=== PATIENT | male | born 1960 | race Caucasian/White ===

== ENCOUNTER 2017-01-30 06:10 | Inpatient (IN) ==
[2017-01-30] MEDS ORDERED: CeFAZolin Pre 2,000 MG/100 ML 2,000 MG/100 ML BAG IVPB ONE (06:21)
[2017-01-30] MEDS ORDERED: Albuterol 2.5 MG/3 ML NEBULIZER IH ONE (06:28)
[2017-01-30] MEDS ORDERED: Ringers Solution, Lactated 1,000 ML IVC SCH ×2 (06:30→11:58)
[2017-01-30] MEDS ORDERED: Albuterol 2.5 MG/3 ML NEBULIZER ONE (06:49)
[2017-01-30] MEDS ORDERED: Lidocaine 1% 20 ML MDV ID ONE (07:05)
[2017-01-30] MEDS ORDERED: *HR* Labetalol 100 MG/20 ML MDV IVP PRN (07:25)
[2017-01-30] MEDS ORDERED: *HR* Promethazine 25 MG/ML VIAL IVP PRN (07:25)
[2017-01-30] MEDS ORDERED: Famotidine 20 MG/2 ML VIAL IVP ONE (07:25)
[2017-01-30] MEDS ORDERED: cloNIDine HCl 0.1 MG TABLET PO ONE (07:27)
[2017-01-30] MEDS ORDERED: Gabapentin 300 MG CAPSULE PO STA (07:27)
--- NOTE | 2017-01-30 07:31 | Anesthesia Evaluation PreOp ---
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 Chronic pain maintained on Amitryptiline, Cyclobenzaprine for muscle spasms. L>>R weakness, N/T, pain. BLE achiness) Other Medical History: Denies Any Significant HX Anesthesia History: No Prior Anesthetic Complications, Past Anesthesia (Franky, L- RCR 2000, T&A) Alcohol Use: occasionally Drug use: none Medications and Allergies Losartan/Hydrochlorothiazide [Losartan-Hctz 100-25 mg Tab] 1 each PO DAILY 06/23 [History] Omeprazole [PriLOSEC] 20 mg PO DAILY 06/23/15 [History] Pravastatin Sodium [Pravachol] 80 mg PO DAILY 06/23/15 [History] Ibuprofen [Motrin] 800 mg PO Q8HR #20 tablet 02/11/16 [Rx] Acetaminophen w/Cod 300-30 mg [Tylenol w/Codeine #3] 1 - 2 each PO Q6HR PRN #12 tablet 08/01/16 [Rx] Allergies No Known Allergies Allergy (Verified 01/30/17 07:45) - Meds/Allergy Pre-op Review Medications Reviewed: Yes Allergies Reviewed: Yes Beta Blockers on Current Med List: No Anesthesia Results - Labs Laboratory Tests 05/27/15 01/09/17 01/09/17 15:13 16:05 16:05 WBC 7.0 Hgb 15.2 Hct 44.3 Plt Count 301 PT 10.9 INR 1.0 APTT 31.5 Sodium Potassium Chloride Carbon Dioxide BUN Creatinine Est GFR (Non-Af Amer) Glucose 89 01/09/17 16:05 WBC Hgb Hct Plt Count PT INR APTT Sodium 139 Potassium 3.8 Chloride 107 Carbon Dioxide 23 BUN 14 Creatinine 1.03 Est GFR (Non-Af Amer) > 60 Glucose - Imaging EKG: image reviewed (77bpm SR, moderate intraventrricular conduction delay) Anesthesia Exam O2 Sat Height 1.68 m Height 1.68 m Height 1.68 m Weight 85.275 kg Weight 85.275 kg Weight 85.275 kg O2 Sat by Pulse Oximetry 95 O2 Sat by Pulse Oximetry 95 Vital Signs Temp Pulse Resp BP Pulse Ox 97.5 F L 60 16 125/90 95 01/30/17 06:42 01/30/17 06:42 01/30/17 06:42 01/30/17 06:42 01/30/17 06:42 Height: 5'7" Weight: 187# - HEENT Pupil (Motor): Pupils equal, EOMI Mallampati: III Teeth: Missing, Poor dentition Oral Opening: Greater than 3 - STAFF SERVICES MANAGER LOC: Oriented STAFF SERVICES MANAGER Motor: Deficit RUE, Deficit LUE (L>RUE N/T, weakness), Deficit LLE STAFF SERVICES MANAGER Sensory: Deficit: RUE, LUE - Cardiac Rhythm: Regular Murmur: None - Pulmonary Breath Sounds: bilateral Clear Respiratory Effort: Symmetrical Anesthesia Assess/Plan ASA Score: 3 (HTN, Smoker, DANIEL, Chol) Modified [place] Scale for Level of Consciousness: Cooperative, oriented, and tranquil Anesthetic Plan: General Monitoring Plan: Standard Monitors Recovery Plan: PACU Anes Supervising Prov Stmt: Pt seen/evaluated, R&B discussed, questions answered and consent obtained. Ted Dey MD
--- NOTE | 2017-01-30 08:08 | History & Physical Report ---
Date of Encounter: 01/30/17 Time of Encounter: 08:07 24 Hour HP Update - Instructions Instructions: If the History and Physical is less than 30 days old and was completed prior to A.M. admission and or procedure and has NOT been updated on calendar day of procedure please complete this update prior to performing procedure. - Update Patient reports changes in Medical Condition: No Changes in assessment/condition: No Changes in Medication: No Preop tests/diagnostics Reviewed: Yes Pre-Op MRSA Screen: Negative Surgery Remains Indicated: Yes Consent for Planned Operative Procedure(s) Verified: Yes - Pre-Operative Checklist Preoperative Checklist Indicated: No Prophylactic Antibiotic Ordered: Yes Home Medications Include Beta Shasha: No Beta Shasha Taken Today (Day of Surgery): No Beta Shasha Taken Yesterday (Day Prior to Surgery): No Is VTE Prophylaxis Indicated?: Yes
[2017-01-30] MEDS ORDERED: Dexamethasone 4 MG/ML VIAL ONE (09:05)
[2017-01-30] MEDS ORDERED: *HR* FentaNYL (PF) 100 MCG/2 ML VIAL ONE ×2 (09:05)
[2017-01-30] MEDS ORDERED: *HR* Propofol 200 MG/20 ML VIAL IVP ONE (09:05)
[2017-01-30] MEDS ORDERED: *HR* Rocuronium Bromide 50 MG/5 ML VIAL ONE (09:05)
[2017-01-30] MEDS ORDERED: Ondansetron 4 MG/2 ML VIAL ONE (09:05)
[2017-01-30] MEDS ORDERED: Lidocaine -MPF 2% 2 ML VIAL ONE (09:05)
[2017-01-30] MEDS ORDERED: *HR* Midazolam HCl 2 MG/2 ML VIAL ONE (09:05)
[2017-01-30] MEDS ORDERED: *HR* Succinylcholine 200 MG/10 ML VIAL IVP ONE (09:05)
[2017-01-30] MEDS ORDERED: Lidocaine -MPF 4% 5 ML AMPUL ONE (09:05)
[2017-01-30] MEDS ORDERED: *HR* Remifentanil 1 MG VIAL IVP ONE ×2 (09:05)
[2017-01-30] MEDS ORDERED: Lacri-Lube 3.5 GM TUBE ONE (09:05)
[2017-01-30] MEDS ORDERED: *HR* Phenylephrine 10 MG/ML VIAL ONE (09:05)
[2017-01-30] MEDS ORDERED: *HR* HYDROmorphone 2 MG/ML SYRINGE ONE (10:31)
--- NOTE | 2017-01-30 10:39 | Orthopedic Operative Note ---
Date of procedure: 01/30/17 Pre-op diagnosis: Cervical stenosis, cervical radiculopathy Post-op diagnosis: same Operation/Findings: Anterior cervical decompression and fusion C6-7: The patient was brought to the operating room and placed supine on the operating room table. Successful general endotracheal anesthesia intubation was performed. Neurophysiologic monitoring personnel placed leads on the upper and lower extremities as well as the cranium for EMG monitoring purposes. Appropriate baseline potentials were noted by the neurophysiologic monitoring staff. Prince catheter was placed prior to positioning. Compression boots and stockings were placed for deep vein thrombosis prophylaxis. Padding was also placed all bony prominences including the ulnar nerve near the medial epicondyles of the elbows were appropriately padded. Mild traction was placed on the bilateral shoulders and taped into place. Preoperative antibiotics were administered. The area from the mandible bilaterally to the upper thoraces was prepped and draped in the usual sterile fashion. A transverse incision was made at the level of the cricoid cartilage which is approximately 3 cm in length and extended from the midline of the cervical spine laterally towards the sternocleidomastoid muscle on the left. We then performed standard medial approach to the carotid sheath. Sponges were used to tease the fascial medial to the sternocleidomastoid muscle while carefully controlling and palpating the carotid artery. Using careful dissection we were able to get to the level of the anterior vertebral bodies and longus coli muscles. The spinal needle was placed at the appropriate C6-7 level, and intraoperative radiograph was obtained which was a cervical spine lateral radiograph. The needle and radiograph confirmed we were at the correct C6-7 operative level. We further exposed this level by using Bovie cautery under the medial edge of the longus coli muscles to allow them to be retracted approximately 2 mm laterally on each side. An 11 blade was used to perform anterior discectomy at the appropriate C6-7 level after an initial annulotomy of the anterior longitudinal ligament and annulus was performed. Further disc material was removed with pituitary Rongeurs. Subsequently, Synthes pins were placed at the C6 and C7 vertebral bodies respectively to provide distraction. We then used a Trimline cervical retractor which was placed in both medial and lateral as well as inferior superior direction to allow full visualization of the appropriate C6-7 disc and C6 and C7 vertebral bodies. The Leica microscope was brought to the field and the remainder of the procedure was performed under the guidance of this microscope. Using pituitary rongeurs and small curettes, various micro- instruments, a full discectomy was performed at the appropriate C6-7 level. The posterior longitudinal ligament was encountered and appeared partially calcified. A portion of this ligament was removed. After complete and thorough discectomy and removal of spondylitic material was performed the endplates of the C6 and C7 vertebral bodies were prepared with a bur until allow bleeding of cancellous bone. A 7 mm trial graft was evaluated and appeared to fit quite well within the excised disc space. A cortico-cancellus allograft of 7 mm was utilized, carefully tapped into place within the excised disc space with the aid of a bone tamp. It was seated approximately 2 mm from the anterior edge of the cortex of the adjacent vertebral bodies. A cervical plate was then placed on the anterior aspect of the C6 and C7 vertebral bodies. The plate was placed in the midline position after drilling four 13 mm self tapping screws and inserting them. They were locked in place using standard Venture plate maneuvers. At this point a lateral radiograph of the cervical spine was obtained and showed satisfactory position of the graft and plate. The wound was copiously irrigated and bleeders encountered were cauterized using Bovie cautery. Platysma was closed with interrupted 2-0 Vicryl sutures. Running 3-0 Monocryl suture was used for skin closure. Sterile dressing was placed over the neck wound. The patient was transferred to a hospital bed and extubated. The patient was noted to be fully motor and sensory intact in the recovery room at the end of the procedure. The medications. All sponge instrument and needle counts were correct at the end of the procedure. Anesthesia: GETA Surgeon: Garth Quijano Jr Estimated blood loss (cc): 25 Condition: stable Disposition: PACU
[2017-01-30] MEDS ORDERED: Ketorolac 30 MG/ML VIAL IVP ONE (11:11)
[2017-01-30] MEDS ORDERED: *HR* HYDROmorphone (PF) 1 MG/ML SYRINGE ONE (11:14)
[2017-01-30] MEDS: *HR* HYDROmorphone (PF) 1 MG/ML SYRINGE IVP PRN ×2 (11:15→11:25)
[2017-01-30] MEDS: Dexamethasone 4 MG/ML VIAL IVP ONE ×2 (11:26→11:37)
--- NOTE | 2017-01-30 11:45 | Anesthesia Evaluation Post Op ---
Date of Encounter: 01/30/17 Time of Encounter: 11:44 - Vital Signs Vital Signs: Last Vital Signs Temp 96.9 F L 01/30/17 10:45 Pulse 97 01/30/17 10:45 Resp 16 01/30/17 11:15 BP 124/75 01/30/17 10:45 Pulse Ox 99 01/30/17 11:15 - Lungs Lungs: Clear Ascult./Percussion - Airway Airway: Non-obstructed - Cardiovascular Regular Rate - Mental Status Mental Status: Alert & Oriented, Answers Appropriately - Pain Pain Scale: 2 - Nausea Vomiting Nausea Vomiting: Not Present - Hydration Hydration: NPO - Discharge PostOp Status: Transfer Patient to floor
[2017-01-30] MEDS ORDERED: tiZANidine 4 MG TABLET PO PRN (11:58)
[2017-01-30] MEDS ORDERED: Naloxone 0.4 MG/ML INJ IVP PRN (11:58)
[2017-01-30] MEDS ORDERED: *HR* Morphine 2 MG/ML SYRINGE IVP PRN ×2 (11:58)
[2017-01-30] MEDS: ceFAZolin 2,000 MG in D5% in Water 100 ML IVPB SCH ×2 (15:55→23:52)
[2017-01-30] MEDS: *HR* OxyCODONE Immed Rel 5 MG TABLET PO PRN (18:19)
[2017-01-30] MEDS ORDERED: Fluticasone Propionate Nasal 50 MCG/SPRAY BOTTLE NS SCH (21:00)
[2017-01-31] MEDS: *HR* OxyCODONE Immed Rel 5 MG TABLET PO PRN ×2 (00:27→13:59)
[2017-01-31] MEDS ORDERED: *HR* HYDROmorphone (PF) 1 MG/ML SYRINGE IVP ONE (04:56)
--- NOTE | 2017-01-31 05:38 | Event Note ---
Date of Encounter: 01/31/17 Time of Encounter: 05:[address] Quijano to see patient for complaints of chest pain. I called RN and ordered STAT CXR (pending), troponin, and EKG. I went to see patient briefly, reviewed EKG, and examined patient. EKG unremarkable. CXR not done yet. Exam suggests some wheezing and rhonchi. Pt is a long time smoker and likely has some COPD. CP sound more like atelectasis and/or COPD, but patient has cardiac risk factors. I recommend checking troponin Q4-6 hours x 2, checking CXR, and trying some Duoneb Aerosols PRN. I will ask my day time hospitalist to follow up and offer formal consultation. Discussed with patient and RN and they are in agreement with plan.
[2017-01-31 06:10] LABS: BUN/Creatinine Ratio 16 (6-26); Blood Urea Nitrogen 14 mg/dL (8-26); Calcium 8.1 mg/dL (8.6-10.8); Carbon Dioxide 23 mEq/L (19-29); Chloride 107 mEq/L (98-109); Glucose 119 mg/dL (70-99); Osmolality,Calculated 288 (280-300); Potassium 3.8 mEq/L (3.5-4.5); Sodium 138 mEq/L (136-145); eGFR For African Americans > 60 (> 60); eGFR For Non-African Americans > 60 (> 60)
[2017-01-31] MEDS: Ipratropium/Albuterol Neb 3 ML IH SCH ×3 (07:48→15:41)
[2017-01-31] MEDS ORDERED: amLODIPine 5 MG TABLET PO SCH (09:00)
[2017-01-31] MEDS ORDERED: Vitamin B Complex/Vit C/Vit E 1 EACH TABLET PO SCH (09:00)
[2017-01-31] MEDS ORDERED: Losartan/HCTZ 50-12.5 TABLET PO SCH (09:00)
[2017-01-31] MEDS ORDERED: Cholecalciferol (D-3) 1,000 UNIT TABLET PO SCH (09:00)
--- NOTE | 2017-01-31 09:43 | Internal Medicine Consult Note ---
Date of Encounter: 01/31/17 Time of Encounter: 09:37 - Assessment and Plan (1) Chest pain Status: Acute Assessment and plan: Unclear etiology and sounds quite atypical, but patient has numerous risk factors for CAD, including HTN, HLD, current tobacco use, obesity. No ischemic changes on EKG during episode and patient now completely chest pain free. Respiratory symptoms associated with the pain could have been esophageal/ laryngeospasm in setting of his surgery, however will need to rule out ACS. Discussed case briefly with inspector and sorter foundation maker who recommends trending troponins and if all are negative (over at least 12 hour period) and patient remains chest pain free he can follow up with cardiology as an outpatient. Stress test not ideal in patient who just had surgery yesterday. - Trend troponin Q6H x3, first troponin 0.01 - Keep patient chest pain free - Monitor on telemetry - Duonebs for possible respiratory component of symptoms Qualifiers: Chest pain type: unspecified Qualified Code(s): R07.9 - Chest pain, unspecified Internal Medicine - CN: HPI - Data of Consult Patient: new to practice Consult date: 01/31/17 Requesting Physician: Garth Quijano Jr MD - Consult Narrative Reason for consult: Chest pain History of present illness: Mr. Linton is a 56 year old male with history of HTN, HLD, COPD, current smoker, who underwent cervical spine surgery (anterior approach) yesterday. He developed upper sternal pain this morning around 0530, described as pressure, 8/ 10 in severity, radiated down to mid sternum. The pain was associated with coughing and he noticed difficulty in taking a deep breath. The night time hospitalist evaluated the patient during the episode and respiratory exam reveal wheezing at that time. EKG was negative for ischemic changes during the episode. The pain lasted for approximately 90 minutes and has completely resolved during my evaluation of the patient. He has never had similar chest pain in the past. He denies any history of cardiac disease. Past Med Surg Social Fam HX - Past Medical History Medical history: COPD, hyperlipidemia, hypertension, other Psychiatric history: no psych history - Past Surgical History Surgical History: appendectomy - Social History Smoking Status: Current every day smoker Smokeless Tobacco Status: Yes Alcohol use: occasionally Drug use: none - Family History Father Hx Family Cardiac Disorders: Yes (CHF) - Constitutional Constitutional: no chills, no fever(s) - EENT Eyes: no change in vision - Respiratory Respiratory: cough, dyspnea, pain on inspiration - Gastrointestinal Gastrointestinal: no diarrhea, no nausea - Neurological Neurological ROS: no focal weakness - Psychiatric Psychiatric: no confusion - Allergic/Immunologic Allergic/Immunologic: no tongue swelling Internal Medicine - CN: Meds Losartan/Hydrochlorothiazide [Losartan-Hctz 100-25 mg Tab] 1 each PO DAILY 06/23 [History] Pravastatin Sodium [Pravachol] 80 mg PO DAILY 06/23/15 [History] Amlodipine [Norvasc] 5 mg PO DAILY 01/30/17 [History] Calcium Carbonate [Calcium] 600 mg PO DAILY 01/30/17 [History] Cholecalciferol (D-3) [Vitamin D] 1,000 unit PO DAILY 01/30/17 [History] Fluticasone Propionate Nasal [Flonase] 2 spr NS HS 01/30/17 [History] Ibuprofen [Motrin] 600 mg PO Q8HR PRN 01/30/17 [History] Tizanidine HCl 4 mg PO Q8H PRN 01/30/17 [History] Vitamin B Complex 1 each PO DAILY 01/30/17 [History] OxyCODONE Immed Rel [Roxicodone 5 MG] 5 mg PO Q6HR PRN #60 tablet 01/31/17 [Rx] Allergies No Known Allergies Allergy (Verified 01/30/17 07:45) Internal Medicine - CN: Exam - Constitutional Vitals: Temp Pulse Resp BP Pulse Ox 98.2 F 97 14 112/73 97 01/31/17 07:05 01/31/17 07:05 01/31/17 07:05 01/31/17 07:05 01/31/17 07:05 General appearance IM: Present: A&O X 3 Exam: Patient in no acute distress, resting comfortably in bed - Head Head exam: Present: atraumatic - Eye Eye exam: Present: EOMI, sclera anicteric - ENT ENT exam: Present: mucous membranes moist - Neck Neck exam general surgery: Present: supple Additional comments: Dressing in place over anterior neck surgical site - Respiratory Respiratory exam: Present: CTAB - Cardiovascular Cardiovascular exam IM: Present: RRR. Absent: diastolic murmur, gallop, rubs, systolic murmur - GI/Abdominal GI/Abdominal exam IM: Present: normal bowel sounds, soft. Absent: distended, tenderness - Extremities Exam Extremities exam IM: Absent: pedal edema - Neurological Exam Neurological exam: Present: no focal deficits - Psychiatric Psychiatric exam: Present: normal affect, normal mood - Skin Skin exam IM: Absent: rash Internal Medicine - CN: Reslt - Labs CBC & Chem 7: 01/31/17 05:36 Labs: BMP 01/31/17 05:36 Sodium 138 Potassium 3.8 Chloride 107 Carbon Dioxide 23 BUN 14 Creatinine 0.88 Glucose 119 H Calcium 8.1 L Cardiac Enzymes 01/31/17 Range/Units 05:36 Troponin I 0.01 (0-0.03) ng/mL - Impressions Impressions Cervical Spine X-Ray 01/30/17 00:00 IMPRESSION: Radiopaque marker at C6-7. Critical results were called by Dr. Cal Betts MD to Garth Quijano on 01/30/2017 at 09:32. D/ / Cal Betts MD / Cal Betts MD Interpreting Provider: Cal Betts MD Cervical Spine X-Ray 01/30/17 09:31 IMPRESSION: Anatomic alignment status post anterior fusion C6-7 D/ / Lul Wells MD / Lul Wells MD Interpreting Provider: Lul Wells MD Chest X-Ray 01/31/17 04:56 IMPRESSION: Left basilar atelectasis or scar. D/ / Serg Orozco MD / Serg Orozco MD Interpreting Provider: Serg Orozco MD Cervical Spine X-Ray 01/31/17 08:20 IMPRESSION: Interval ACDF at C6-7. No evidence for acute postoperative complication. D/ / 01/31/2017 07:53:47 Arvin Smith MD / [facility] Interpreting Provider: Arvin Smith MD Consult Discharge Plan - Plan Additional Instructions: Discharge Instructions: Cervical Please call [facility] ([phone]), your Primary Care Physician, or report to the ER if you have any of the following symptoms: Fever greater that 101.5, increased pain/redness/drainage/odor for your incision site or any other concerning symptoms. ACTIVITY * May Shower * No Tub Baths * No Smoking * No Swimming * No Driving * Wear Collar when up walking MEDICATIONS: Upon discharge resume your home medications. Take all the medications as prescribed. Take a stool softener if taking narcotic pain medications. Stool softeners are only effective if you drink enough fluids. Drink 6-8 glass of water or fluids a day, unless this is not allowed for another health problem. Despite using stool softeners, if you haven't had a bowel movement in 3 days, please switch to a gentle laxative. Gentle laxatives are sold over the counter. You should have a bowel movement within 24 hours, if not call the office. You will be discharged from the hospital with a prescription for pain medication. You are encouraged to decrease the use of narcotic pain medication as tolerated. Should you require a refill, please call the office. It is best to call 48-72 hours in advance of needing a prescription refill so you don't run out of medication. WOUND CARE: Leave steri-strips in place until they fall off on their own. Pat dry when you get out of the shower. FOLLOW-UP: Please follow up with your surgeon in the orthopedic clinic in 2 weeks from the day of surgery. References: [employer] (www.apta.org) Referrals: Garth Quijano Jr, MD [Partnered Physician] - Fahad Black MD [Primary Care Provider] - Nona Villarreal CNP [Partnered Physician] - 02/22/17 10:30 am Prescriptions: OxyCODONE Immed Rel [Roxicodone 5 MG] 5 mg PO Q6HR PRN #60 tablet PRN Reason: Severe Pain
--- NOTE | 2017-01-31 14:12 | Discharge Summary ---
Date of Encounter: 01/31/17 Time of Encounter: 14:09 - Discharge Diagnosis (1) Cervical stenosis of spinal canal Priority: Primary Status: Chronic (2) Cervical radiculopathy Priority: Secondary Status: Chronic - Discharge Medications Prescriptions: OxyCODONE Immed Rel [Roxicodone 5 MG] 5 mg PO Q6HR PRN #60 tablet PRN Reason: Severe Pain Home Medications: Losartan/Hydrochlorothiazide [Losartan-Hctz 100-25 mg Tab] 1 each PO DAILY 06/23 [History] Pravastatin Sodium [Pravachol] 80 mg PO DAILY 06/23/15 [History] Amlodipine [Norvasc] 5 mg PO DAILY 01/30/17 [History] Calcium Carbonate [Calcium] 600 mg PO DAILY 01/30/17 [History] Cholecalciferol (D-3) [Vitamin D] 1,000 unit PO DAILY 01/30/17 [History] Fluticasone Propionate Nasal [Flonase] 2 spr NS HS 01/30/17 [History] Ibuprofen [Motrin] 600 mg PO Q8HR PRN 01/30/17 [History] Tizanidine HCl 4 mg PO Q8H PRN 01/30/17 [History] Vitamin B Complex 1 each PO DAILY 01/30/17 [History] OxyCODONE Immed Rel [Roxicodone 5 MG] 5 mg PO Q6HR PRN #60 tablet 01/31/17 [Rx] Allergies/Adverse Reactions: Allergies No Known Allergies Allergy (Verified 01/30/17 07:45) Labs on day of discharge: Labs from last 24 hours 01/31/17 01/31/17 01/31/17 11:10 05:36 05:36 Sodium 138 Potassium 3.8 Chloride 107 Carbon Dioxide 23 BUN 14 Creatinine 0.88 Est GFR ( Amer) > 60 Est GFR (Non-Af Amer) > 60 BUN/Creatinine Ratio 16 Glucose 119 H Calculated Osmolality 288 Calcium 8.1 L Troponin I 0.00 0.01 - Impressions ITS Impressions Cervical Spine X-Ray 01/30/17 00:00 IMPRESSION: Radiopaque marker at C6-7. Critical results were called by Dr. Cal Betts MD to Garth Quijano on 01/30/2017 at 09:32. D/ / Cal Betts MD / Cal Betts MD Interpreting Provider: Cal Betts MD Cervical Spine X-Ray 01/30/17 09:31 IMPRESSION: Anatomic alignment status post anterior fusion C6-7 D/ / Lul Wells MD / Lul Wells MD Interpreting Provider: Lul Wells MD Chest X-Ray 01/31/17 04:56 IMPRESSION: Left basilar atelectasis or scar. D/ / Serg Orozco MD / Serg Orozco MD Interpreting Provider: Serg Orozco MD Cervical Spine X-Ray 01/31/17 08:20 IMPRESSION: Interval ACDF at C6-7. No evidence for acute postoperative complication. D/ / 01/31/2017 07:53:47 Arvin Smith MD / [facility] Interpreting Provider: Arvin Smith MD Date of admission: 01/30/17 11:54 Primary care physician: Fahad Black MD Consults: 01/30/17 11:58 Consult to Occupational Therapy [CONS] Routine Comment: Evaluate, develop and implement POC Consult to Physical Therapy [CONS] Routine Comment: Evaluate, develop and implement POC Consult to Spine Navigator [CONS] [CONS] Routine - Patient Status Disposition: Home, Self-Care Condition: Good Functional capacity at discharge: independent ambulation Overall status at discharge: patient is progressing back to baseline - Discharge Instructions Follow Up With: Fahad Black MD [Primary Care Provider] - - Diet and Activity Activity: as per physical therapy Diet: advance to your usual diet - Hospital Course Hospital course: Mr. Linton is a 56 year old male The patient had an uneventful postoperative course. He had an episode of chest pain that was investigated by the hospitalist group. There were no acute interventions required. Progressed from intravenous analgesic needs to oral analgesic needs only. Remained neurovascularly intact and mobilized satisfactorily. All intraoperative and/or postoperative radiographic studies were satisfactory. Patient is discharged with plan for rehabilitation and follow-up in 2 weeks post discharge on analgesic medication and patient's home medications. - Time Spent with Patient Total time spent providing and/or coordinating discharge services: - VTE Documentation of Mechanical Device: Intermittent pneumatic compression device
[2017-01-31 14:48] VITALS: BP 134/76
--- NOTE | 2017-01-31 15:49 | Electrocardiograph Report ---
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
== END 2017-01-31 18:43 | disposition home or self-care (01) | DRG 472 ==
LOC: SAMDAY 06:10 → 3NENU 11:54
PROVIDERS: ADMIT Orthopaedic Surgery Orthopaedic Surgery of the Spine; ATTEND Orthopaedic Surgery Orthopaedic Surgery of the Spine